=== PATIENT | female | born 1990 | race African-American/Black ===

== ENCOUNTER 2020-12-22 11:58 | Emergency (ER) | payer OTHER, SELFPAY ==
[2020-12-22 13:00] VITALS: BP 152/90; PULSE 70; RESP 16; TEMP 36.4; O2SAT 100
[2020-12-22] MEDS: IBUPROFEN 600 MG TABLET PO (13:55)
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
== END 2020-12-22 15:30 | disposition home or self-care (01) ==
PROVIDERS: Emergency Provider Emergency Medicine; PCP Family Medicine
DX: S16.1XXA Strain of muscle, fascia and tendon at neck level, initial encounter (principal); V43.12XA Car passenger injured in collision with other type car in nontraffic accident, initial encounter
CPT/HCPCS: 99283; A9270